=== PATIENT | female | born 1985 | race Caucasian/White ===

== ENCOUNTER 2016-11-22 18:53 | Emergency (ER) | payer OTHER ==
[2016-11-22 19:16] LABS: BILIRUBIN NEGATIVE (NEGATIVE); BLOOD NEGATIVE Ery/uL (NEGATIVE); CLARITY HAZY (CLEAR); COLOR YELLOW (YELLOW); GLUCOSE (U) NORMAL (NORMAL); KETONE (U) TRACE mg/dL (NEGATIVE); LEUKOCYTES 1+ Leu/uL (NEGATIVE); NITRITE NEGATIVE (NEGATIVE); PROTEIN NEGATIVE (NEGATIVE); SPECIFIC GRAVITY 1.025 (1.001-1.030); pH 6.5 (5.0-9.0)
[2016-11-22 19:24] LABS: BACTERIA 2+; MUCOUS TRACE; URINARY RBC RARE
[2016-11-22 20:19] LABS: BASOPHIL 0.5 % (0-2); HCT 38.3 % (37.0-47.0); LYMPHOCYTE 23.9 % (15-48); MCH 28.8 pg (25.0-31.0); MCHC 33.9 g/dL (32.0-36.0); MCV 84.9 fL (78.0-100.0); MONOCYTE 6.4 % (0-12); MPV 9.6 fL (6.0-9.5); NEUTROPHIL 65.2 % (41-80); PLT 402 K/uL (150-400); RBC 4.51 M/uL (4.20-5.40); RDW 13.2 % (11.5-14.0)
[2016-11-22 20:35] LABS: ALBUMIN 4.5 g/dL (3.5-5.0); BILIRUBIN - TOTAL 0.3 mg/dL (0.1-1.0); CREATININE 0.9 mg/dL (0.5-1.0); GLOBULIN (CALCULATION) 2.6 g/dL (2.2-4.2); POTASSIUM 4.3 mmol/L (3.5-5.1); TOTAL PROTEIN 7.1 g/dL (6.4-8.3)
== END 2016-11-22 21:37 | disposition left against medical advice (07) ==
LOC: FER 18:53
PROVIDERS: Emergency Medicine
DX: R58 Hemorrhage, not elsewhere classified (principal); F17.210 Nicotine dependence, cigarettes, uncomplicated; Z88.0 Allergy status to penicillin
CPT/HCPCS: 36415; 80053; 81001; 85025